=== PATIENT | female | born 2000 | race African-American/Black ===

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

== ENCOUNTER → 2020-10-07 | Outpatient (CLI) | payer SELFPAY ==
[~2020-10-07] MED LIST changes: -OMEP40CA2 PO; +OMEP40CA97 PO; +ZOFR4TAB14 PO; -ZOFR4TAB3 PO
== END ==
LOC: M LABSMTC 11:52
PROVIDERS: ATTEND Pediatrics
DX: Z20.822 Contact with and (suspected) exposure to COVID-19 (principal)

== ENCOUNTER 2022-08-16 14:34 | Emergency (ER) | payer OTHER, SELFPAY ==
[~2022-08-16] VITALS: Ht 154.9 cm; Wt 49.4 kg
[~2022-08-16 14:34] MED LIST changes: +OMEP40CA4 PO; -OMEP40CA97 PO
[2022-08-16 14:35] VITALS: BP 141/76
[2022-08-16] MEDS ORDERED: NEXI20CA PO (14:43)
[2022-08-16 15:36] LABS: BASO % 0.4 % (0.0-1.0); EOS # 0.7 10^3/uL (0.0-0.5); EOS % 7.9 % (0.0-3.0); HEMOGLOBIN 14.8 g/dl (12.0-15.5); LYMPH # 3.2 10^3/uL (1.5-5.0); MEAN CORPUSCULAR HEMOGLOBIN 29.9 pg (27.0-33.0); MEAN CORPUSCULAR HGB CONC 33.6 g/dl (32.0-36.5); MEAN CORPUSCULAR VOLUME 88.9 fl (80.0-96.0); MONO # 0.6 10^3/uL (0.0-0.8); MONO % 6.6 % (2.0-8.0); NEUTROPHILS # 3.9 10^3/uL (1.5-8.5); NEUTROPHILS % 46.9 % (36.0-66.0); PLATELET COUNT, AUTOMATED 359 10^3/uL (150-450); RED BLOOD COUNT 4.95 10^6/uL (4.00-5.40); WHITE BLOOD COUNT 8.4 10^3/uL (4.0-10.0)
[2022-08-16 16:02] LABS: HCG, SERUM QUALITATIVE NEGATIVE (NEGATIVE)
[2022-08-16 16:08] LABS: LIPASE 42 U/L (12-53)
[2022-08-16 16:10] LABS: BILIRUBIN,DIRECT 0.2 MG/DL (<0.4)
[2022-08-16 16:11] LABS: ALBUMIN 3.8 G/DL (3.2-5.2); ALKALINE PHOSPHATASE 65 U/L (46-116); ALT/SGPT 16 U/L (7.0-40); AST/SGOT 21 U/L (<34); BILIRUBIN,TOTAL 0.4 MG/DL (0.3-1.2); BLOOD UREA NITROGEN 9 MG/DL (9-23); CALCIUM LEVEL 9.2 MG/DL (8.5-10.1); CARBON DIOXIDE LEVEL 25 MMOL/L (20-31); CHLORIDE LEVEL 106 MMOL/L (98-107); CREATININE FOR GFR 0.67 MG/DL (0.55-1.30); GLOMERULAR FILTRATION RATE > 60.0 (>60); GLUCOSE, FASTING 93 MG/DL (60-100); POTASSIUM SERUM 3.9 MMOL/L (3.5-5.1); SODIUM LEVEL 140 MMOL/L (136-145); TOTAL PROTEIN 7.2 G/DL (5.7-8.2)
[2022-08-16] MEDS ORDERED: PANTOPRAZOLE 40MG VIAL IV ONE (18:45)
[2022-08-16] MEDS ORDERED: PROT1TAB2 PO (19:15)
== END 2022-08-16 19:22 | disposition home or self-care (01) ==
LOC: M ED 14:34
DX: K21.9 Gastro-esophageal reflux disease without esophagitis (principal); F41.9 Anxiety disorder, unspecified; F32.A Depression, unspecified; Z87.442 Personal history of urinary calculi; Z91.010 Allergy to peanuts; Z79.1 Long term (current) use of non-steroidal anti-inflammatories (NSAID); Z79.899 Other long term (current) drug therapy
CPT/HCPCS: 80048; 80076; 81000; 81015; 83690; 84703; 85025; 96374; 99282; C9113